=== PATIENT | male | born 1960 | race African-American/Black ===

== ENCOUNTER 2020-02-16 07:27 | Day surgery (SDC) | payer MEDICARE ==
[~2020-02-16] VITALS: Ht 180.3 cm; Wt 106.6 kg
[~2020-02-16 07:27] MED LIST: ATOR40TA71 PO; FLUT1AER IH; FURO40TA5 PO; LOSA100T58 PO; NITR0.4T50 SL; SODIUM CHLORIDE 0.9% 1000ML 1,000 ML IV ONE; WARF6TAB49 PO
[2020-02-16 08:41] VITALS: BP 149/94
[2020-02-16 09:19] LABS: INR 2.23 (0.85-1.15); PROTHROMBIN TIME 23.4 SEC (9.6-11.6)
[2020-02-16] MEDS ORDERED: PROPOFOL 10 MG/ML 20ML VIAL IV ONE (09:33)
[2020-02-16 10:02] VITALS: BP 106/82
[2020-02-16 10:07] VITALS: BP 102/69
[2020-02-16 10:12] VITALS: BP 127/78
[2020-02-16 10:22] VITALS: BP 113/76
== END 2020-02-16 10:38 | disposition home or self-care (01) ==
LOC: DAH 07:27
PROVIDERS: ATTEND Internal Medicine
DX: Z12.11 Encounter for screening for malignant neoplasm of colon (principal); K29.50 Unspecified chronic gastritis without bleeding; K22.8 Other specified diseases of esophagus; K31.89 Other diseases of stomach and duodenum; K44.9 Diaphragmatic hernia without obstruction or gangrene; I25.2 Old myocardial infarction; I13.0 Hypertensive heart and chronic kidney disease with heart failure and stage 1 through stage 4 chronic kidney disease, or unspecified chronic kidney disease; I50.9 Heart failure, unspecified; Z87.442 Personal history of urinary calculi; N18.3 Chronic kidney disease, stage 3 (moderate); I25.10 Atherosclerotic heart disease of native coronary artery without angina pectoris; E78.00 Pure hypercholesterolemia, unspecified; J45.909 Unspecified asthma, uncomplicated; Z79.01 Long term (current) use of anticoagulants; Z79.899 Other long term (current) drug therapy; Z95.1 Presence of aortocoronary bypass graft
CPT/HCPCS: 36415; 43239; 85610; 88305; 88313; 88341; 88342; A4215; A4221; A4222; A4223; A4606; A4620; A4663; G0121; J2704; J7030; 43244; 45378